=== PATIENT | male | born 1975 | race Caucasian/White ===

== ENCOUNTER 2019-07-27 18:51 | Emergency (ER) | payer OTHER ==
[~2019-07-27] VITALS: Ht 177.8 cm; Wt 90.7 kg
[~2019-07-27 18:51] MED LIST: CLEOCIN HCL150 MG PO; NORCO 5-325 TA1 EAC1 PO
[2019-07-27] MEDS ORDERED: NORCO 7.5-3251 EACH PO (20:29)
[2019-07-27 20:37] VITALS: BP 148/102
== END 2019-07-27 20:30 | disposition home or self-care (01) ==
LOC: M.ERS 18:51
DX: S20.211A Contusion of right front wall of thorax, initial encounter (principal); Z88.0 Allergy status to penicillin; W18.39XA Other fall on same level, initial encounter; Y93.89 Activity, other specified; Y92.89 Other specified places as the place of occurrence of the external cause; Y99.8 Other external cause status